=== PATIENT | male | born 1970 | race Caucasian/White ===

== ENCOUNTER 2017-10-30 18:24 | Emergency (ER) | payer MEDICAID ==
[2017-10-30 18:24] VITALS: BMI 29.7
[2017-10-30 18:45] VITALS: TEMP 98.8
--- NOTE | 2017-10-30 19:56 | ED PDOC ---
Arrival/HPI - General Chief Complaint: Chest Pain Time Seen by Provider: 10/30/17 19:26 Historian: Patient - History of Present Illness Narrative History of Present Illness (Text): 10/30/17 19:30 Rachel Sosa is a 47 year old male who presents to the emergency department complaining of intermittent pounding to the right sided lateral chest wall with associated shortness of breath for about 3-4 days. Patient states that each episode is a few seconds and occurs about 1-2 times every hour. Patient denies any extra caffeine intake today, fever, chills, or any other complaints at this time. Time/Duration: < week Symptom Onset: Gradual Symptom Course: Intermittent Activities at Onset: Light Context: Home Past Medical History - Provider Review Nursing Documentation Reviewed: Yes - Infectious Disease Hx of Infectious Diseases: None - HEENT Hx HEENT Disorder: No - Psychiatric Hx Psychophysiologic Disorder: No Hx Substance Use: No - Surgical History Hx Orthopedic Surgery: Yes (Left elbow) - Anesthesia Hx Anesthesia: No Family/Social History - Physician Review Nursing Documentation Reviewed: Yes Family/Social History: No Known Family HX Smoking Status: Never Smoked Hx Alcohol Use: No Hx Substance Use: No Allergies/Home Meds Allergies/Adverse Reactions: Allergies No Known Allergies Allergy (Verified 09/01/15 08:02) Home Medications: Home Meds Medication Instructions Recorded Confirmed No Known Home Med 09/01/15 10/30/17 Review of Systems - Physician Review All systems were reviewed & negative as marked: Yes - Review of Systems Constitutional: absent: Fevers, Night Sweats Eyes: absent: Vision Changes ENT: absent: Hearing Changes Respiratory: SOB. absent: Cough Cardiovascular: Other (intermittent pounding to right-sided lateral chest wall) Gastrointestinal: absent: Abdominal Pain Genitourinary Male: absent: Dysuria Musculoskeletal: absent: Arthralgias Skin: absent: Rash Neurological: absent: Headache, Dizziness Endocrine: absent: Diaphoresis Hemo/Lymphatic: absent: Adenopathy Psychiatric: absent: Anxiety Physical Exam Vital Signs Reviewed: Yes Vital Signs Temp Pulse Resp BP Pulse Ox 10/30/17 20:01 92 H 18 118/72 99 10/30/17 18:42 98.8 F 90 16 120/75 98 Temperature: Afebrile Blood Pressure: Normal Pulse: Regular Respiratory Rate: Normal Appearance: Positive for: Well-Appearing, Non-Toxic, Comfortable Pain Distress: None Mental Status: Positive for: Alert and Oriented X 3 - Systems Exam Head: Present: Atraumatic, Normocephalic Pupils: Present: PERRL Extroacular Muscles: Present: EOMI Conjunctiva: Present: Normal Mouth: Present: Moist Mucous Membranes Neck: Present: Normal Range of Motion Respiratory/Chest: Present: Clear to Auscultation, Good Air Exchange. No: Respiratory Distress, Accessory Muscle Use Cardiovascular: Present: Regular Rate and Rhythm, Normal S1, S2. No: Murmurs Abdomen: Present: Normal Bowel Sounds. No: Tenderness, Distention, Peritoneal Signs Back: Present: Normal Inspection Upper Extremity: Present: Normal Inspection. No: Cyanosis, Edema Lower Extremity: Present: Normal Inspection. No: Edema Neurological: Present: GCS=15, CN II-XII Intact, Speech Normal Skin: Present: Warm, Dry, Normal Color. No: Rashes Psychiatric: Present: Alert, Oriented x 3, Normal Insight, Normal Concentration Medical Decision Making ED Course and Treatment: 10/30/17 19:57 Impression: 47 year old male who presents to the emergency department complaining of intermittent pounding to the right sided lateral chest wall with associated shortness of breath for about 3-4 days. Differential Diagnosis included but are not limited to: Palpitations Plan: -- Chest X-ray -- Labs -- Reassess and disposition Progress Notes: EKG: Ordered, reviewed, and independently interpreted the EKG. Rate : 83 BPM Rhythm : NSR Interpretation : Normal axis, normal intervals. 10/30/17 23:14 chest xray: No active disease, as read by me. I have discussed the results and plan with the patient, who expresses understanding. Patient will be discharged home, with referral to pockets and pieces necktie operator. Patient in agreement with plan to be discharged home. - Lab Interpretations Lab Results: 10/30/17 20:38 10/30/17 20:38 Lab Results 10/30/17 20:38: Sodium 140, Potassium 4.3, Chloride 102, Carbon Dioxide 27, Anion Gap 14, BUN 14, Creatinine 0.7 L, Est GFR ( Amer) > 60, Est GFR ( Non-Af Amer) > 60, Random Glucose 96, Calcium 9.4, Total Bilirubin 0.4, AST 35, ALT 54, Alkaline Phosphatase 45, Lactate Dehydrogenase 485, Total Creatine Kinase 117, Troponin I < 0.01, NT-Pro-B Natriuret Pep < 11.1, Total Protein 7.6 , Albumin 4.2, Globulin 3.4, Albumin/Globulin Ratio 1.2 10/30/17 20:38: PT 11.5, INR 1.01, D-Dimer, Quantitative < 200 10/30/17 20:38: WBC 7.2 D, RBC 4.77, Hgb 14.9, Hct 43.4, MCV 91.0, MCH 31.2, MCHC 34.3, RDW 12.9, Plt Count 235, MPV 10.6, Gran % 45.0 L, Lymph % (Auto) 41.6 H, [place] % (Auto) 9.4 H, Eos % (Auto) 3.9, Baso % (Auto) 0.1, Gran # 3.24, Lymph # 3.0, [place] # 0.7 H, Eos # 0.3, Baso # 0.01 I have reviewed the lab results: Yes - RAD Interpretation Radiology Orders: 10/30/17 19:57 CXR (PA/LAT) [CHEST TWO VIEWS (PA/LAT)] [RAD] Stat - Scribe Statement The provider has reviewed the documentation as recorded by the Scribe Lena Carver Provider Scribe Attestation: All medical record entries made by the Scribe were at my direction and personally dictated by me. I have reviewed the chart and agree that the record accurately reflects my personal performance of the history, physical exam, medical decision making, and the department course for this patient. I have also personally directed, reviewed, and agree with the discharge instructions and disposition. Disposition/Present on Arrival - Present on Arrival Any Indicators Present on Arrival: No History of DVT/PE: No History of Uncontrolled Diabetes: No Urinary Catheter: No History of Decub. Ulcer: No History Surgical Site Infection Following: None - Disposition Have Diagnosis and Disposition been Completed?: Yes Diagnosis: Atypical chest pain Disposition: HOME/ ROUTINE Disposition Time: 23:10 Patient Plan: Discharge Patient Problems: Current Active Problems Problem Status Onset Atypical chest pain Acute Condition: GOOD Discharge Instructions (ExitCare): Chest Pain (ED) Additional Instructions: Mr Sosa- All of your testing looks good. Take copies of the labs and the ekg with you to the doctor tomorrow. You CXR was normal. Ask your doctor to do a stress test, and or refer you to a pockets and pieces necktie operator for further work up. RETURN TO US IF ANY PROBLEMS. Best- Dr. Pancho Lewis Referrals: [facility], [Primary Care Provider] - Follow up with primary Forms: [facility] (Tongan)
[2017-10-30 20:02] VITALS: RESP 18; O2SAT 99
[2017-10-30 21:01] LABS: ALB/GLOB RATIO 1.2 (1.1-1.8); ALBUMIN 4.2 g/dL (3.0-4.8); CALCIUM 9.4 mg/dL (8.4-10.5); GFR AFRICAN-AMERICAN > 60; GFR NON-AFRICAN AMERICAN > 60
[2017-10-30 21:04] LABS: BASO # 0.01 K/mm3 (0.0-2.0); BASO % 0.1 % (0.0-3.0); EOS # 0.3 (0.0-0.7); EOS % 3.9 % (1.5-5.0); GRAN # 3.24 (1.4-6.5); HEMOGLOBIN 14.9 g/dL (14.0-18.0); LYMPH % 41.6 % (22.0-35.0); MEAN CORPUSCULAR HEMOGLOBIN 31.2 pg (25.0-35.0); MEAN CORPUSCULAR HGB CONC 34.3 g/dl (31.0-37.0); MEAN PLATELET VOLUME 10.6 fl (7.0-11.0); MONO # 0.7 (0.1-0.6); MONO % 9.4 % (1.0-6.0); RBC 4.77 10^6/uL (3.5-6.1); RED CELL DISTRIBUTION WIDTH 12.9 % (11.5-14.5); WHITE BLOOD COUNT 7.2 10^3/ul (4.5-11.0)
[2017-10-30 21:14] LABS: TROPONIN I < 0.01 ng/mL
[2017-10-30 21:16] LABS: ALT/SGPT 54 U/L (7-56); AST/SGOT 35 U/L (17-59); B-TYPE NATRIURETIC PEPTIDE < 11.1 pg/mL (0-450); BLOOD UREA NITROGEN 14 mg/dL (7-21)
[2017-10-30 21:20] LABS: D DIMER < 200 ng/mL (0-243); INR 1.01 (0.93-1.08); PROTHROMBIN TIME 11.5 SECONDS (9.4-12.5)
[2017-10-30 23:24] VITALS: BP 122/70; PULSE 72
--- NOTE | 2017-10-31 13:43 | RAD ---
HISTORY: chest pain/palpitations COMPARISON: No prior. TECHNIQUE: Chest PA and lateral FINDINGS: LUNGS: No active pulmonary disease. PLEURA: No significant pleural effusion identified. No pneumothorax apparent. CARDIOVASCULAR: Normal. OSSEOUS STRUCTURES: No significant abnormalities. VISUALIZED UPPER ABDOMEN: Normal. OTHER FINDINGS: None. IMPRESSION: No active disease.
--- NOTE | 2017-10-31 18:35 | CARD ---
APPROVED REPORT EKG Measurement Heart [id number] <Conclusion> Normal sinus rhythm Normal ECG
== END 2017-10-30 23:26 | disposition home or self-care (01) ==
LOC: ED 18:24
DX: R07.89 Other chest pain (principal)